=== PATIENT | female | born 1965 | race Two or more races ===

== ENCOUNTER → 2025-10-24 | Outpatient (CLI) | payer MEDICAID, SELFPAY ==
--- NOTE | 2025-10-24 10:23 | XR_ITS ---
Examination: Abdomen sonogram, complete Date and time of exam: October 24, 2025, 1031 hours INDICATIONS: Right upper abdominal pain and vomiting beginning 6 days ago.. Technique: Multiple real-time grayscale transabdominal sonographic images of the abdomen have been obtained. Findings: Gallbladder sludge, tiny gallstones Normal gallbladder wall Normal common bile duct 0.3 cm Pancreatic head 3.7 cm Aorta not enlarged Liver 16.6 cm fatty infiltration lobular contour Normal hepatopetal portal venous flow Patent IVC Right kidney 11.0 cm renal cortex 1.5 cm Left kidney 9.0 cm renal cortex 2.0 cm Mid pole left renal calculus 11 mm Spleen 9.4 cm IMPRESSION:: Cholelithiasis, negative for cholecystitis 11 mm left renal calculus
== END | disposition home or self-care (01) ==
LOC: CDIM 10:09
PROVIDERS: PCP Physician Assistant; Referring Provider Physician Assistant; Visit Provider Physician Assistant
DX: K80.20 Calculus of gallbladder without cholecystitis without obstruction (principal); N20.0 Calculus of kidney
CPT/HCPCS: 76700